=== PATIENT | female | born 1990 | race African-American/Black ===

== ENCOUNTER 2016-10-08 17:13 | Emergency (ER) | payer BC, OTHER ==
[~2016-10-08] VITALS: Ht 152.4 cm; Wt 99.8 kg
[~2016-10-08 17:13] MED LIST: HYDR-971 PO
[2016-10-08 17:23] VITALS: BP 117/78
--- NOTE | 2016-10-08 17:45 | PHYS DOC ---
Past Medical History Past Medical History: Other Additional Past Medical Histor: heart murmur Past Surgical History: Alcohol Use: Rarely Drug Use: None Adult General Chief Complaint Chief Complaint: SKIN RASH/ABSCESS HPI HPI Patient is a 25 year old female who presents with a nonpruritic rash that began 2-1/2 weeks ago. Patient has tried [id number] medications with no relief. Patient denies any new contacts. Review of Systems Review of Systems Constitutional: Denies fever or chills [] Musculoskeletal: Denies back pain or joint pain [] Integument: rash Neurologic: Denies headache, focal weakness or sensory changes [] Endocrine: Denies polyuria or polydipsia [] Allergies Allergies Allergies Coded Allergies Type Severity Reaction Last Updated Verified No Known Drug Allergies 02/07/16 No Physical Exam Physical Exam Constitutional: Well developed, well nourished, no acute distress, non-toxic appearance. [] Skin: Patient has mild amount of circular raised rashes suspicious of fungal infection with some of the rashes appearing erythematous papular similar to contact dermatitis. Rashes are on her abdomen, back and bilateral upper extremities. Back: No tenderness, no CVA tenderness. [] Extremities: No tenderness, no cyanosis, no clubbing, ROM intact, no edema. [] Neurologic: Alert and oriented X 3, normal motor function, normal sensory function, no focal deficits noted. [] Psychologic: Affect normal, judgement normal, mood normal. [] Current Patient Data Vital Signs Vital Signs Date Time Temp Pulse Resp B/P (MAP) Pulse Ox O2 Delivery O2 Flow Rate FiO2 10/08/16 17:23 98.6 90 18 98 Room Air 98.6 EKG EKG [] Radiology/Procedures Radiology/Procedures [] Course & Med Decision Making Course & Med Decision Making Pertinent Labs and Imaging studies reviewed. (See chart for details) Patient has contact dermatitis rash and some fungal rashes, discharged with nystatin/clotrimazole cream as well as prednisone for 5 days. Encouraged her to take Benadryl. 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 Jannet Disclaimer Dragon Disclaimer This electronic medical record was generated, in whole or in part, using a voice recognition dictation system. Departure Departure Impression: Primary Impression: Contact dermatitis Additional Impression: Tinea corporis Disposition: 01 HOME, SELF-CARE Condition: STABLE Referrals: FRANK LLOYD (PCP) follow up with your doctor in two weeks or the doctor provided CHRISSY RIVERA MD follow up in two weeks Patient Instructions: Body Ringworm, Contact Dermatitis, [id number] Additional Instructions: You were seen with a rash suspicious of a fungal infection as well as contact dermatitis. Use the medications provided as ordered. Follow-up with your doctor in 1-2 weeks for the doctor provided in 2 weeks. Scripts Prednisone (PREDNISONE) 50 Mg Tablet 1 TAB PO DAILY, #5 TAB Prov: JAMES THOMAS APRN 10/08/16 Nystatin/Triamcin (NYSTATIN-TRIAMCINOLONE CREAM) 15 Gm Cream..g. 1 ISHAAN TP BID, #60 GM 1 Refill Prov: JAMES THOMAS APRN 10/08/16 Problem Qualifiers Primary Impression: Contact dermatitis Contact dermatitis type: unspecified Contact dermatitis trigger: unspecified trigger Qualified Codes: L25.9 - Unspecified contact dermatitis, unspecified cause JAMES THOMAS APRN Oct 08, 2016 17:44
[2016-10-08] MEDS ORDERED: PRED50TA PO (18:03)
[2016-10-08] MEDS ORDERED: NYST15CR2 TP (18:03)
== END 2016-10-08 18:15 | disposition home or self-care (01) ==
LOC: ER 17:13
DX: L25.9 Unspecified contact dermatitis, unspecified cause (principal); B35.4 Tinea corporis
CPT/HCPCS: 99283

== ENCOUNTER 2016-12-08 19:03 | Emergency (ER) | payer OTHER ==
[~2016-12-08 19:03] MED LIST changes: +NYST15CR2 TP; +PRED50TA PO
[2016-12-08 19:12] VITALS: BP 128/81
--- NOTE | 2016-12-08 19:18 | PHYS DOC ---
Past Medical History Past Medical History: Other Additional Past Medical Histor: heart murmur Past Surgical History: Alcohol Use: Rarely Drug Use: None Adult General Chief Complaint Chief Complaint: VAGINAL PROBLEM HPI HPI Patient is a 25 year old E male presents to the emergency department with complaints of vaginal discharge, vaginal itching, low abdominal and low back pain. Patient states she's had symptoms for one day. States she's had no burning with urination or painful urination. She states she is sexually active and monogamous with 1 partner. She does not use control or condoms. Review of Systems Review of Systems Constitutional: Denies fever or chills [] Eyes: Denies change in visual acuity, redness, or eye pain [] HENT: Denies nasal congestion or sore throat [] Respiratory: Denies cough or shortness of breath [] Cardiovascular: No additional information not addressed in HPI [] GI: Low abdominal pain without nausea, vomiting. : Vaginal itching, vaginal discharge Musculoskeletal: Low back pain Integument: Denies rash or skin lesions [] Neurologic: Denies headache, focal weakness or sensory changes [] Endocrine: Denies polyuria or polydipsia [] Allergies Allergies Allergies Coded Allergies Type Severity Reaction Last Updated Verified No Known Drug Allergies 02/07/16 No Physical Exam Physical Exam Constitutional: Well developed, well nourished, no acute distress, non-toxic appearance. [] Neck: Normal range of motion, no tenderness, supple, no stridor. [] Cardiovascular:Heart rate regular rhythm, no murmur [] Lungs & Thorax: Bilateral breath sounds clear to auscultation [] Abdomen: Bowel sounds normal, soft, no tenderness, no masses, no pulsatile masses. : Normal external genitalia, vaginal exam, no discharge, no exam: No cervical motion tenderness no adnexal fullness.[] Skin: Warm, dry, no erythema, no rash. [] Back: No tenderness, no CVA tenderness. [] Neurologic: Alert and oriented X 3, normal motor function, normal sensory function, no focal deficits noted. [] Psychologic: Affect normal, judgement normal, mood normal. [] Current Patient Data Vital Signs Vital Signs Date Time Temp Pulse Resp B/P (MAP) Pulse Ox O2 Delivery O2 Flow Rate FiO2 12/08/16 19:12 98.6 89 18 97 Room Air 98.6 Lab Values Laboratory Tests Test 12/08/16 19:16 12/08/16 19:23 Urine Color Yellow Urine Clarity Clear Urine pH 6.0 Urine Specific [place] >=1.030 Urine Protein Negative mg/dL (NEG-TRACE) Urine Glucose (UA) Negative mg/dL (NEG) Urine Ketones (Stick) Trace mg/dL (NEG) Urine Blood Negative (NEG) Urine Nitrite Negative (NEG) Urine Bilirubin Negative (NEG) Urine Urobilinogen Dipstick 1.0 mg/dL (0.2 mg/dL) Urine Leukocyte Esterase Moderate (NEG) Urine RBC 0 /HPF (0-2) Urine WBC 5-10 /HPF (0-4) Urine Squamous Epithelial Cells Mod /LPF Urine Bacteria Few /HPF (0-FEW) Urine Mucus Mod /LPF POC Urine HCG, Qualitative Hcg negative (Negative) Microbiology 12/08/16 Wet Prep - Final, Complete EKG EKG [] Radiology/Procedures Radiology/Procedures [] Course & Med Decision Making Course & Med Decision Making Pertinent Labs and Imaging studies reviewed. (See chart for details) []GC and chlamydia pending. Patient is clinically asymptomatic for STD. Will await culture results to determine treatment. Dragon Disclaimer Dragon Disclaimer This electronic medical record was generated, in whole or in part, using a voice recognition dictation system. Departure Departure Impression: Primary Impression: Urinary tract infection Disposition: 01 HOME, SELF-CARE Condition: STABLE Referrals: FRANK LLOYD (PCP) Patient Instructions: Urinary Tract Infection Scripts Fluconazole (DIFLUCAN) 150 Mg Tablet 1 TAB PO ONCE, #1 TAB 1 Refill Prov: LEONARDO MASTERSON APRN 12/08/16 Nitrofurantoin Monohyd/M-Cryst (MACROBID 100 MG CAPSULE) 100 Mg Capsule 1 CAP PO BID, #20 CAP Prov: LEONARDO MASTERSON APRN 12/08/16 Problem Qualifiers Primary Impression: Urinary tract infection Urinary tract infection type: acute cystitis Hematuria presence: without hematuria Qualified Codes: N30.00 - Acute cystitis without hematuria LEONARDO MASTERSON APRN Dec 08, 2016 19:18
[2016-12-08 19:30] LABS: BILIRUBIN,URINE NEGATIVE (NEG); GLUCOSE,URINE NEGATIVE (NEG); NITRITE,URINE NEGATIVE (NEG); PROTEIN,URINE NEGATIVE (NEG-TRACE)
[2016-12-08 19:47] LABS: BACTERIA,URINE FEW /HPF (0-FEW); RBC,URINE 0 /HPF (0-2); SQUAMOUS EPITHELIAL CELL,UR MOD /LPF
[2016-12-08] MEDS ORDERED: NITR100C62 PO (20:08)
[2016-12-08] MEDS ORDERED: FLUC150T PO (20:08)
== END 2016-12-08 20:15 | disposition home or self-care (01) ==
LOC: ER 19:03
DX: N30.00 Acute cystitis without hematuria (principal)
CPT/HCPCS: 81001; 81025; 87086; 87491; 87591; 99284; Q0111